=== PATIENT | male | born 1965 | race Caucasian/White ===

== ENCOUNTER → 2023-01-21 10:36 | Outpatient (BNVA) | payer BC, SELFPAY | PROVIDERS: PCP Internal Medicine; Visit Provider Internal Medicine | DX: Z13.89 Encounter for screening for other disorder (principal) ==

== ENCOUNTER 2023-03-16 10:02 | Outpatient (REF) | payer BC, SELFPAY ==
--- NOTE | 2023-03-16 10:05 | EMG_ITS ---
Please see scanned EMG / Nerve Conduction Report. MTDD
== END 2023-03-16 10:03 | disposition home or self-care (01) ==
LOC: HO.NEURO 10:02
PROVIDERS: PCP Internal Medicine; Visit Provider Internal Medicine
DX: M54.16 Radiculopathy, lumbar region (principal); R20.0 Anesthesia of skin
CPT/HCPCS: 95886; 95913